=== PATIENT | female | born 1950 | race African-American/Black ===

== ENCOUNTER 2024-08-17 03:39 | Inpatient (IN) | payer OTHER, MEDICAID ==
[~2024-08-17] VITALS: Ht 170.2 cm; Wt 83.5 kg
--- NOTE | 2024-08-17 04:52 | ED.PDOC ---
History of Present Illness HPI Comments 74 y/o F, with a Hx of CVA w/right-sided and speech deficits and obesity, is BIBA for c/o nausea, vomiting, and diarrhea, today. Per EMS report, family called on patient's behalf for sudden and unprovoked onset of symptoms, this morning. Patient was noted to have epigastric pain to palpation, a blood pressur e of 170/7p, and a SpO2 of 88%RA on scene and was given 4mg Zofran and given DuoNeb breathing Tx and 2LPM O2 placement en route. Patient has no reported chest pain, hematemesis, fever, chills, or other associated symptoms or modifiers at this time. Chief Complaint: Nausea/Vomiting Time Seen by MD: 04:10 Reviewed Notes: Nurses Notes, Booth Cashier Notes, Medications, Allergies Allergies: Coded Allergies: Penicillins (Verified Allergy, Unknown, 08/17/24) Information Source: Emergency Med Personnel Mode of Arrival: EMS Severity: Moderate Timing: Hours Duration: Since onset Prehospital treatment: 12 Lead EKG, Breathing Tx (duoneb), Material Handler Floorperson, Oxygen, Other (Zofran ) Past Medical History PAST MEDICAL HISTORY: CVA (w/right-sided and speech deficits ) Past Medical History (Other): obesity Surgical History: Denies all surgeries STOCK TRACER History: Denies all STOCK TRACER Hx Family History Family History: Unknown Social History Smoker: Non-Smoker Alcohol: Denies ETOH Use Drugs: Denies Drug Use Lives In: Home Gastrointestinal: reports: diarrhea, nausea, vomiting All Other Systems: Reviewed and Negative (negative unless otherwise stated above or in HPI) Physical Exam General Appearance: No Apparent Distress, Obese HEENT: Normal ENT Inspection, Pharynx Normal, TMs Normal Neck: Full Range of Motion, Non-Tender, Normal, Normal Inspection Respiratory: Chest Non-Tender, Lungs Clear, No Accessory Muscle Use, No Respiratory Distress, Normal Breath Sounds Cardiovascular: No Edema, No JVD, No Murmur, No Gallop, Normal Peripheral Pulses, Regular Rate/Rhythm Breast Exam: Deferred Gastrointestinal: No Organomegaly, Non Tender, No Pulsatile Mass, Normal Bowel Sounds, Soft Genitalia: Deferred Pelvic: Deferred Rectal: Deferred Extremities: No calf tenderness, Normal capillary refill, Normal inspection, Normal range of motion, Non-tender, No pedal edema Musculoskeletal : Apperance: Normal Neurologic: Alert, Normal Affect, Normal Mood, Other (right-side paralysis ) Cerebellar Function: Normal Reflexes: Normal Skin: Dry, Normal Color, Warm, Wounds (right buttocks, skin breakdown 8x7cm in dimension, stage I) Lymphatic: No Adenopathy Was a procedure done? Was a procedure done?: No Differential Dx Considerations may include: gastritis, gastroenteritis, viral syndrome, URI, PNA X-Ray, Labs, Meds, VS Vital Signs Date Time Temp Pulse Resp B/P (MAP) Pulse Ox O2 Delivery O2 Flow Rate FiO2 08/17/24 04:42 98.0 74 26 151/64 (93) 97 98.0 08/17/24 04:33 Nasal Cannula* 2 28 08/17/24 03:42 67 08/17/24 03:42 97.6 65 26 170/70 (103) [address] [place] [id number] Ph: [phone] DIAGNOSTIC IMAGING Diagnostic Imaging Report : [id number] Signed PATIENT: RADHA BONILLA ACCT: [id number] UNIT: [id number] : 1950 LOC: ER ROOM / BED: / AGE / SEX: 74 / F ADM STATUS: REG ER SERVICE [id number] ORDERING PHYSICIAN: SANFORD ISABEL MD PROCEDURE(s): ABPL - CT AB PEL WO CON-NO ORAL OR IV REASON: v/v/d ORDER NUMBER(s): [id number], ACCESSION NUMBER(s): [id number] Exam: CT CT AB PEL WO CON-NO ORAL OR IV History: v/v/d Comparison Study: None available at time of dictation. Technique: Multidetector spiral CT of the abdomen and pelvis was performed from lung bases to pubic symphysis. Imaging was performed without intravenous contrast. Coronal and sagittal multiplanar reformats were obtained from the axial data set by the technologist. Radiation Dose : 1. Abdomen/Pelvis: CTDIvol 23.3 mGy, DLP 1203.4 mGy*cm. Findings: Evaluation of vasculature and solid organs is limited due to lack of intravenous contrast use. Lung Bases: Lung bases are clear. Visualized portions of the heart and pericardium are unremarkable. Liver: The liver is normal in size. No focal lesions. Gallbladder and Biliary Tree: The gallbladder has gallstones. No intrahepatic or extrahepatic biliary ductal dilatation. Spleen: Unremarkable Pancreas: The pancreas is grossly unremarkable. Adrenal Glands: Unremarkable Kidneys: Punctate bilateral nonobstructive intrarenal calculi. GI tract: The stomach is grossly normal in appearance. No evidence of small bowel wall thickening or abnormal dilatation to suggest bowel obstruction. Sigmoid diverticulosis without acute diverticulitis. There is a rectal tube in place. The appendix is visualized and is normal. Peritoneum/mesentery/retroperitoneum. No evidence of free intraperitoneal air. No ascites. No evidence of suspicious lymphadenopathy. Abdominal Wall: Unremarkable. Vasculature: The visualized abdominal aorta is normal in size and caliber. Evaluation of abdominal and pelvic vessels is limited due to lack of intravenous contrast. There are atherosclerotic calcifications in the aorta. Urinary Bladder: Grossly unremarkable for degree of distention. Pelvic Organs: Unremarkable Musculoskeletal: No aggressive focal bony lesions, acute fractures or disloca tion. Soft tissues: There is soft tissue swelling in the right flank. IMPRESSION: 1. No acute abdominal or pelvic findings. 2. Sigmoid diverticulosis without acute diverticulitis. 3. Cholelithiasis. 4. Nonobstructive nephrolithiasis. 5. Soft tissue swelling in the right flank. ATED BY: HEENA AGARWAL MD DICTATED DATE/TIME: 08/17/24546 SIGNED BY: HEENA AGARWAL MD SIGNED DATE/TIME: 08/17/24546 CC: Labs are pending The patient will be admitted to the hospitalist for further evaluation and care Time of 1ST Reevaluation: 04:40 Reevaluation 1ST: Unchanged Patient Education/Counseling: Diagnosis, Treatment Family Education/Counseling: No Family Present Departure 1 Departure Time of Disposition: 06:06 Impression: Primary Impression: Cholelithiasis Qualified Codes: K80.20 - Calculus of gallbladder without cholecystitis without obstruction Additional Impressions: Nephrolithiasis Diverticulosis Disposition: ADMITTED INPATIENT Admit to: [facility] [place] Condition: Guarded Critical Care Note Critical Care Time?: Yes (35 min-critical care time only) Stability Stability form required: No Heart Score Heart Score: Heart Score Response (Comments) Value History N/A 0 EKG N/A 0 Age N/A 0 Risk Factors N/A 0 Troponin N/A 0 Total 0 I personally scribed for SANFORD ISABEL MD ([email or web address]) on 08/17/24 at 04:52. Electronically submitted by Chauncey Hwang ([email or web address]). SANFORD ISABEL MD Aug 17, 2024 04:52
--- NOTE | 2024-08-17 05:50 | DVH ---
Exam: CT CT AB PEL WO CON-NO ORAL OR IV History: v/v/d Comparison Study: None available at time of dictation. Technique: Multidetector spiral CT of the abdomen and pelvis was performed from lung bases to pubic s ymphysis. Imaging was performed without intravenous contrast. Coronal and sagittal multiplanar refor mats were obtained from the axial data set by the technologist. Radiation Dose : 1. Abdomen/Pelvis: CTDIvol 23.3 mGy, DLP 1203.4 mGy*cm. Findings: Evaluation of vasculature and solid organs is limited due to lack of intravenous contrast use. Lung Bases: Lung bases are clear. Visualized portions of the heart and pericardium are unremarkable. Liver: The liver is normal in size. No focal lesions. Gallbladder and Biliary Tree: The gallbladder has gallstones. No intrahepatic or extrahepatic bilia ry ductal dilatation. Spleen: Unremarkable Pancreas: The pancreas is grossly unremarkable. Adrenal Glands: Unremarkable Kidneys: Punctate bilateral nonobstructive intrarenal calculi. GI tract: The stomach is grossly normal in appearance. No evidence of small bowel wall thickening or abnormal dilatation to suggest bowel obstruction. Sigmoid diverticulosis without acute diverticuliti s. There is a rectal tube in place. The appendix is visualized and is normal. Peritoneum/mesentery/retroperitoneum. No evidence of free intraperitoneal air. No ascites. No evidenc e of suspicious lymphadenopathy. Abdominal Wall: Unremarkable. Vasculature: The visualized abdominal aorta is normal in size and caliber. Evaluation of abdominal a nd pelvic vessels is limited due to lack of intravenous contrast. There are atherosclerotic calcifica tions in the aorta. Urinary Bladder: Grossly unremarkable for degree of distention. Pelvic Organs: Unremarkable Musculoskeletal: No aggressive focal bony lesions, acute fractures or dislocation. Soft tissues: There is soft tissue swelling in the right flank. IMPRESSION: 1. No acute abdominal or pelvic findings. 2. Sigmoid diverticulosis without acute diverticulitis. 3. Cholelithiasis. 4. Nonobstructive nephrolithiasis. 5. Soft tissue swelling in the right flank.
--- NOTE | 2024-08-17 06:37 | ECG ---
[facility] Test Date: 2024-08-17 Test Time: 03:42:03 Pat Name: RADHA BONILLA Department: ED Room: [address] [place] [address] Gender: F Inspector Ball Points: SHEKHAR : 1950 Requested By: EMERGENCY EMERGENCY Order Number: [id number] Reading MD: Maynor Rodriguez Measurements Intervals Mcdougal Rate: 67 P: 87 WV: 149 QRS: 11 QRSD: 106 T: 195 QT: 429 QTc: 453 Interpretive Statements Sinus rhythm LVH with secondary repolarization abnormality Electronically Signed On 08-17-2024 18:28:48 PST by Maynor Rodriguez Please click the below link to view image of tracing.
[2024-08-17 07:15] LABS: Basophils # (auto) 0 10 ^3/uL (0-0.2); Basophils % (auto) 0.3 % (0.0-2.0); Eosinophils # (auto) 0 10 ^3/uL (0-0.8); Eosinophils % (auto) 0.1 % (0.0-7.0); Hematocrit 41.2 % (36.0-46.0); Hemoglobin 13.8 g/dL (12.2-16.2); Lymphocytes # (auto) 0.8 10 ^3/uL (0.4-5.4); Lymphocytes % (auto) 7.6 % (10.0-50.0); Mean Corpuscular Hemoglobin 28.7 pg (28.0-32.0); Mean Corpuscular Hgb Conc. 33.5 g/dL (32.0-36.0); Mean Corpuscular Volume 85.8 fL (80.0-100.0); Monocytes # (auto) 0.4 10 ^3/uL (0-1.3); Monocytes % (auto) 3.9 % (0.0-12.0); Neutrophils # (auto) 9.3 10 ^3/uL (1.6-8.6); Neutrophils % (auto) 88.1 % (37.0-80.0); Platelet Count (auto) 296 10^3/uL (140-450); Red Blood Cells 4.81 10^6/uL (4.0-5.20); Red Cell Distribution Width 18.2 % (11.8-14.3); White Blood Cell 10.5 10^3/uL (4.4-10.8)
[2024-08-17 07:31] LABS: INR 1.59 (0.9-1.15); Prothrombin Time 16.3 sec (9.3-11.8)
[2024-08-17 07:32] LABS: Alanine Aminotransferase 21 U/L (7-40); Albumin 3.9 g/dL (3.2-4.8); Anion Gap 9 (5-15); Aspartate Aminotransferase 25 U/L (13-40); Bilirubin, Total 0.5 mg/dL (0.2-1.0); Blood Urea Nitrogen 19 mg/dL (9-23); Calcium 9.9 mg/dL (8.7-10.4); Carbon Dioxide 25 mmol/L (20-31); Chloride 107 mmol/L (98-107); Magnesium 1.9 mg/dL (1.6-2.6); Potassium 4.1 mmol/L (3.5-5.1); Sodium 141 mmol/L (136-145); Total Protein 7.9 g/dL (5.7-8.2)
[2024-08-17 07:33] LABS: Alkaline Phosphatase 128 U/L (46-116); Glucose 154 mg/dL (74-106)
[2024-08-17 08:25] VITALS: PULSE 75; RESP 27; O2SAT 98
--- NOTE | 2024-08-17 08:44 | DVH ---
EXAM: CT HEAD WITHOUT CONTRAST INDICATION: bleed TECHNIQUE: CT of the head without intravenous contrast. Radiation Dose Information: CT Dose: CTDI volume is 25 mGy. Dose-length product is 250 mGy*cm The dose indicators for CT are the volume Computed Tomography (CT) Dose Index (CTDIvol) and the Dose Length Product (DLP), and are measured in units of mGy and mGy-cm, respectively. These indicators are not patient dose, but values generated from the CT scanner acquisition factors. The report includes radiation exposure data for exposures received during this examination. COMPARISON: None FINDINGS: There is no evidence of acute intracranial hemorrhage, extra-axial collection, mass effect, midline s hift, herniation or hydrocephalus. Encephalomalacia left MCA territory The ventricles, sulci and cisterns are age appropriate. The swann-white differentiation is intact. Patchy periventricular and subcortical white matter hypoattenuation is nonspecific but may be related to small vessel ischemic disease. The visualized paranasal sinuses and mastoid air cells are clear. The surrounding soft tissues and osseous structures are unremarkable. IMPRESSION: No acute intracranial abnormality.
[2024-08-17] MEDS: SODIUM CHLORIDE 0.9% 1,000 ML IV ONE (09:10)
[2024-08-17] MEDS: ENOXAPARIN SOD 120 MG/0.8 ML SYRINGE SC ONE (09:15)
[2024-08-17] MEDS: cefTRIAXone 1GM/50ML D5W 50 ML IV ONE (09:18)
[2024-08-17] MEDS ORDERED: MORPHINE SULFATE 4 MG/ML SYR/VIAL IV PRN (09:45)
[2024-08-17] MEDS ORDERED: ONDANSETRON HCL 4 MG/2 ML VIAL IV PRN (09:45)
[2024-08-17] MEDS ORDERED: ALBUTEROL SULF 2.5 MG/0.5ML(0.5%) NEB SOLN NEB PRN ×2 (09:45→10:15)
[2024-08-17] MEDS ORDERED: IPRATROPIUM BROM 0.5 MG/2.5ML INH SOL NEB PRN ×2 (09:45→10:15)
[2024-08-17] MEDS ORDERED: NITROGLYCERIN 0.4 MG SL TAB SL PRN ×2 (09:45)
[2024-08-17] MEDS ORDERED: ROSU20TA56 PO (09:46)
[2024-08-17] MEDS ORDERED: LOSA-534 PO (09:46)
[2024-08-17] MEDS ORDERED: HYDR25TA4 PO (09:46)
[2024-08-17] MEDS ORDERED: HYDR100T10 PO (09:46)
[2024-08-17] MEDS ORDERED: AMLO1TAB23 PO (09:46)
[2024-08-17] MEDS ORDERED: MET50T PO (09:46)
[2024-08-17] MEDS ORDERED: WARF4TAB70 PO (09:49)
[2024-08-17] MEDS: ENOXAPARIN SOD 100 MG/1 ML SYRINGE SC SCH (10:00)
--- NOTE | 2024-08-17 10:23 | DVHHP2 ---
History of Present Illness Reason for Visit: Nausea, vomiting, diarrhea abdominal pain, and shortness of breath History of Present Illness Twila Chavira is a 74-year-old female with past medical history of hypertension, hyperlipidemia, bronchitis, CVA with right-sided deficits over 8 years ago who is bed ridden, cardiac stent over 10 years ago, and hysterectomy who presents to the ED for nausea, vomiting, diarrhea, abdominal pain, and shortness of breath times 1 day. Per daughter who is at bedside she states that the diarrhea just happened yesterday and she reports that she believes it is due to spoiled food. Patient daughter also reports that patient is bed ridden due to a CVA that occurred over 8 years ago and the patient has right-sided deficits. Patient can still move her extremities but limited. Right lower extremity appears to be larger than the left side but patient has no complaints of pain. Patient also denies chest pain, fever, chills, any recent trauma or injury, recent sick contacts, lightheadedness, dizziness, and headaches. 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 Past Medical History Cardiac stent placed over 10 years ago per daughter at [place] Past Surgical History: Hysterectomy Family History: None Smoke: No ALCOHOL: none Drugs: None Lives: with Family Domestic Violence: Neg Review of Systems Constitutional: Yes: Other (Right-sided deficits from CVA); No: Fever, Chills, Sweats, Weakness, Malaise Eyes: No: Pain, Vision change, Conjunctivae inflammation, Eyelid inflammation, Other, Redness ENT: No: Ear pain, Ear discharge, Nose pain, Nose discharge, Nose congestion, Mouth pain, Mouth swelling, Throat pain, Throat swelling, Other Respiratory: Shortness of breath; No: Cough, Dry, SOB with excertion, Wheezing, Hemoptysis, Pleuritic Pain, Sputum, Wheezing, Other Cardiovascular: No: Chest Pain, Palpitations, Orthopnea, Paroxysmal Noc. Dyspnea, Edema, Lt Headedness, Other Gastrointestinal: Nausea, Vomiting, Abdominal Pain, Diarrhea; No: Constipation, Melena, Hematochezia, Other Genitourinary: No Dysuria, No Frequency, No Incontinence, No Hematuria, No Retention, No Other Musculoskeletal: No: other, neck pain, shoulder pain, arm pain, back pain, hand pain, leg pain, foot pain Skin: No: Rash, Lesions, Jaundice, Bruising, Other Neurological: No: Weakness, Numbness, Incoordination, Change in speech, Confusion, Seizures, Other Allergies: Coded Allergies: Penicillins (Verified Allergy, Unknown, 08/17/24) Medications Current Medications Medications Dose Ordered Sig/Justin Route Start Time Stop Time Status Last Admin Dose Admin Aspirin 81 mg DAILY PO 08/17/24 10:00 UNV Morphine Sulfate 2 mg Q30MP PRN IV 08/17/24 09:45 UNV Acetaminophen 650 mg Q6HP PRN PO 08/17/24 09:45 UNV Nitroglycerin 0.4 mg Q5MINP PRN SL 08/17/24 09:45 UNV Ondansetron HCl 4 mg Q4HP PRN IV 08/17/24 09:45 UNV Nitroglycerin 0.4 mg Q5MINP PRN SL 08/17/24 09:45 UNV Morphine Sulfate 2 mg Q30M PRN IV 08/17/24 09:45 UNV Enoxaparin Sodium 110 mg Q12HR SC 08/17/24 10:00 UNV Albuterol 2.5 mg Q4HPRN PRN NEB 08/17/24 09:45 UNV Ipratropium [place] 0.5 mg Q4HPRN PRN NEB 08/17/24 09:45 UNV Exam Vital Signs Vital Signs Date Time Temp Pulse Resp B/P (MAP) Pulse Ox O2 Delivery O2 Flow Rate FiO2 08/17/24 08:25 75 27 98 Nasal Cannula* 2 28 08/17/24 08:03 97.3 134/30 (64) 97.3 General Appearance: Alert, Oriented X3, Cooperative, No acute distress HEENT: Atraumatic, PERRLA, EOMI, Mucous membr. moist/pink Respiratory: Normal air movement Cardiovascular: Regular rate, Normal S1, Normal S2, No murmurs Abdominal: Soft, No hepatospenomegaly, No masses Extremities: No clubbing, No cyanosis Skin: No significant lesion Neuro: Sensation intact Psych/Mental Status: Mental status NL, Mood NL Labs/Xrays Labs Test 08/17/24 09:35 08/17/24 06:15 Range/Units White Blood Count 10.5 4.4-10.8 10^3/uL Red Blood Count 4.81 4.0-5.20 10^6/uL Hemoglobin 13.8 12.2-16.2 g/dL Hematocrit 41.2 36.0-46.0 % Mean Corpuscular Volume 85.8 80.0-100.0 fL Mean Corpuscular Hemoglobin 28.7 28.0-32.0 pg Mean Corpuscular Hemoglobin Concent 33.5 32.0-36.0 g/dL Red Cell Distribution Width 18.2 H 11.8-14.3 % Platelet Count 296 140-450 10^3/uL Mean Platelet Volume 9.5 6.9-10.8 fL Neutrophils (%) (Auto) 88.1 H 37.0-80.0 % Lymphocytes (%) (Auto) 7.6 L 10.0-50.0 % Monocytes (%) (Auto) 3.9 0.0-12.0 % Eosinophils (%) (Auto) 0.1 0.0-7.0 % Basophils (%) (Auto) 0.3 0.0-2.0 % Neutrophils # (Auto) 9.3 H 1.6-8.6 10 ^3/uL Lymphocytes # (Auto) 0.8 0.4-5.4 10 ^3/uL Monocytes # (Auto) 0.4 0-1.3 10 ^3/uL Eosinophils # (Auto) 0 0-0.8 10 ^3/uL Basophils # (Auto) 0 0-0.2 10 ^3/uL Nucleated Red Blood Cells 0.0 % Prothrombin Time 16.3 H 9.3-11.8 sec Prothrombin Time INR 1.59 H 0.9-1.15 Activated Partial Thromboplast Time 33.0 24.5-34.5 SEC Sodium Level 141 136-145 mmol/L Potassium Level 4.1 3.5-5.1 mmol/L Chloride Level 107 98-107 mmol/L Carbon Dioxide Level 25 20-31 mmol/L Anion Gap 9 5-15 Blood Urea Nitrogen 19 9-23 mg/dL Creatinine 1.19 H 0.550-1.02 mg/dL Glomerular Filtration Rate Calc 48 >90 mL/min BUN/Creatinine Ratio 16.0 10.0-20.0 Serum Glucose 154 H 74-106 mg/dL Calcium Level 9.9 8.7-10.4 mg/dL Magnesium Level 1.9 1.6-2.6 mg/dL Total Bilirubin 0.5 0.2-1.0 mg/dL Aspartate Amino Transferase (AST) 25 13-40 U/L Alanine Aminotransferase (ALT) 21 7-40 U/L Alkaline Phosphatase 128 H 46-116 U/L B-Type Natriuretic Peptide 300.32 0-100 pg/mL Total Protein 7.9 5.7-8.2 g/dL Albumin 3.9 3.2-4.8 g/dL EXAM: CT HEAD WITHOUT CONTRAST INDICATION: bleed TECHNIQUE: CT of the head without intravenous contrast. Radiation Dose Information: CT Dose: CTDI volume is 25 mGy. Dose-length product is 250 mGy*cm The dose indicators for CT are the volume Computed Tomography (CT) Dose Index (CTDIvol) and the Dose Length Product (DLP), and are measured in units of mGy and mGy-cm, respectively. These indicators are not patient dose, but values generated from the CT scanner acquisition factors. The report includes radiation exposure data for exposures received during this examination. COMPARISON: None FINDINGS: There is no evidence of acute intracranial hemorrhage, extra-axial collection, mass effect, midline shift, herniation or hydrocephalus. Encephalomalacia left MCA territory The ventricles, sulci and cisterns are age appropriate. The swann-white differentiation is intact. Patchy periventricular and subcortical white matter hypoattenuation is nonspecific but may be related to small vessel ischemic disease. The visualized paranasal sinuses and mastoid air cells are clear. The surrounding soft tissues and osseous structures are unremarkable. IMPRESSION: No acute intracranial abnormality. Exam: CT CT AB PEL WO CON-NO ORAL OR IV History: v/v/d Comparison Study: None available at time of dictation. Technique: Multidetector spiral CT of the abdomen and pelvis was performed from lung bases to pubic symphysis. Imaging was performed without intravenous cont rast. Coronal and sagittal multiplanar reformats were obtained from the axial data set by the technologist. Radiation Dose : 1. Abdomen/Pelvis: CTDIvol 23.3 mGy, DLP 1203.4 mGy*cm. Findings: Evaluation of vasculature and solid organs is limited due to lack of intravenous contrast use. Lung Bases: Lung bases are clear. Visualized portions of the heart and pericardium are unremarkable. Liver: The liver is normal in size. No focal lesions. Gallbladder and Biliary Tree: The gallbladder has gallstones. No intrahepatic or extrahepatic biliary ductal dilatation. Spleen: Unremarkable Pancreas: The pancreas is grossly unremarkable. Adrenal Glands: Unremarkable Kidneys: Punctate bilateral nonobstructive intrarenal calculi. GI tract: The stomach is grossly normal in appearance. No evidence of small bowel wall thickening or abnormal dilatation to suggest bowel obstruction. Sigmoid diverticulosis without acute diverticulitis. There is a rectal tube in place. The appendix is visualized and is normal. Peritoneum/mesentery/retroperitoneum. No evidence of free intraperitoneal air. No ascites. No evidence of suspicious lymphadenopathy. Abdominal Wall: Unremarkable. Vasculature: The visualized abdominal aorta is normal in size and caliber. Ev aluation of abdominal and pelvic vessels is limited due to lack of intravenous contrast. There are atherosclerotic calcifications in the aorta. Urinary Bladder: Grossly unremarkable for degree of distention. Pelvic Organs: Unremarkable Musculoskeletal: No aggressive focal bony lesions, acute fractures or dislocation. Soft tissues: There is soft tissue swelling in the right flank. IMPRESSION: 1. No acute abdominal or pelvic findings. 2. Sigmoid diverticulosis without acute diverticulitis. 3. Cholelithiasis. 4. Nonobstructive nephrolithiasis. 5. Soft tissue swelling in the right flank. Assessment/Plan Assessment/Plan Assessment/Plan: Intractable abdominal pain likely viral Cardiac stent greater than 10 years ago IV antibiotics-ceftriaxone and Flagyl NS Antiemetics CT abdomen and pelvis noted CT head noted Stool bacterial culture Flexes Cl Elevated troponin Aspirin Statin EKG UA PT/PTT BNP Olivera catheter Echo Right lower extremity ultrasound rule out DVT Pain management Labs A.m. labs EKG a.m. Cards consult History of CVA with right-sided deficits Monitor Follow up with PCP outpatient Chronic bronchitis Respiratory treatments Chronic hypertension Chronic hyperlipidemia Continue home meds f/u with pcp outpatient Sigmoid diverticulosis without acute diverticulitis. Cholelithiasis. Nonobstructive nephrolithiasis. Soft tissue swelling in the right flank. 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 OPERATOR Procedure Category Date Status Time Admit ADMIT 08/17/24 Transmitted 09:38 Code Status CODE 08/17/24 Transmitted 09:38 Vital Signs YUN 08/17/24 In Process 09:38 Meat Products Demonstrator YUN 08/17/24 In Process 09:38 Cardiac DIET 08/17/24 Transmitted Diet-2gna,Lofat,Lochol Lunch Aspirin Tablet PHA 08/17/24 Logged 10:00 Morphine Sulfate PHA 08/17/24 Logged Injection 09:45 Acetaminophen Tablet PHA 08/17/24 Logged (Tylenol Tablet) 09:45 Complete Blood Count LAB 08/18/24 Verified 04:00 Comprehensive LAB 08/18/24 Verified Metabolic Panel 04:00 Echo 2d Mode Cardiac US 08/17/24 Logged DOP 09:38 Nitroglycerin PHA 08/17/24 Logged Sublingual (Ntrostat 09:45 Ondansetron Hcl PHA 08/17/24 Logged (Zofran) 09:45 Electrocardigram EKG 08/18/24 Logged 04:00 Cardiac YUN 08/17/24 In Process Rehabilitation - Outpa Nitroglycerin PHA 08/17/24 Logged Sublingual (Ntrostat 09:45 Morphine Sulfate PHA 08/17/24 Logged Injection 09:45 Stat Ekg For Chest YUN 08/17/24 In Process Pain 09:38 Notify Of Changes YUN 08/17/24 In Process From Base 09:38 Shiftman For YUN 08/17/24 In Process 24 Hours 09:38 Emergency Dysrhythmia YUN 08/17/24 In Process Protocol 09:38 Rhythm Strips Once [facility] 08/17/24 In Process Every Shift 09:38 Oxygen By Nasal RT 08/17/24 Transmitted Cannula 09:38 Rt Lower Dvt US 08/17/24 Logged 09:38 * Cardiology Consult CONS 08/17/24 Transmitted 09:38 Enoxaparin Sodium PHA 08/17/24 Logged (Lovenox) 10:00 Albuterol Medneb PHA 08/17/24 Logged (Ventolin Medneb) 09:45 Ipratropium Medneb PHA 08/17/24 Logged (Atrovent Medneb) 09:45 Metronidazole Ivpb PHA 08/17/24 Transmitted Flagyl 14:00 Ceftriaxone Ivpb PHA 08/18/24 Transmitted Rocephin 09:00 Date of Service: Aug 17, 2024 Billing Provider: CORBY RAMIREZ Common Visit Codes: [id number] INP/OBS CARE (HIGH) CORBY RAMIREZ Aug 17, 2024 10:23
[2024-08-17] MEDS: HYDROmorphone HCL 2 MG/ML VL/or syr IV ONE (10:31)
[2024-08-17] MEDS: ONDANSETRON HCL 4 MG/2 ML VIAL IV ONE (10:32)
[2024-08-17 10:45] VITALS: BP 144/77; PULSE 62; RESP 20; O2SAT 98
--- NOTE | 2024-08-17 11:00 | DVH ---
RIGHT LOWER EXTREMITY VENOUS DOPPLER CLINICAL HISTORY: Right leg swelling TECHNIQUE: Right lower extremity venous doppler study was performed. COMPARISON: None FINDINGS: The right common femoral, superficial femoral, popliteal, posterior tibial veins appear patent with normal augmentation, phasicity, compressibility and color-flow. . IMPRESSION: 1. No sonographic evidence of DVT in the right leg. HS:Y
[2024-08-17] MEDS: ASPirin 81 mg TAB PO SCH (12:14)
[2024-08-17 12:24] LABS: Urine Bacteria FEW /hpf (None Seen); Urine Blood Negative /uL (Negative); Urine Budding Yeast OCCASIONAL /hpf (None Seen); Urine Clarity Turbid (Clear); Urine Color Yellow (Yellow); Urine Mucus FEW (None Seen); Urine Protein, UAD 1+ (Negative); Urine Squamous Epithelial Cell MOD /hpf (<5); Urine Urobilinogen Normal (Negative); Urine WBC 79 /hpf (0 - 5)
--- NOTE | 2024-08-17 12:24 | DVHPN2 ---
Consult Progress Note Objective vital signs Vital Sign Date Time Temp Pulse Resp B/P (MAP) Pulse Ox O2 Delivery O2 Flow Rate FiO2 08/17/24 11:30 69 08/17/24 11:00 16 119/47 08/17/24 10:45 98 2.0 08/17/24 08:25 Nasal Cannula* 28 08/17/24 08:03 97.3 97.3 medications Current Medications Medications Dose Ordered Sig/Justin Route Start Time Stop Time Status Last Admin Dose Admin Aspirin 81 mg DAILY PO 08/17/24 10:00 08/17/24 12:14 81 MG Morphine Sulfate 2 mg Q30MP PRN IV 08/17/24 09:45 Acetaminophen 650 mg Q6HP PRN PO 08/17/24 09:45 Nitroglycerin 0.4 mg Q5MINP PRN SL 08/17/24 09:45 Ondansetron HCl 4 mg Q4HP PRN IV 08/17/24 09:45 Nitroglycerin 0.4 mg Q5MINP PRN SL 08/17/24 09:45 Morphine Sulfate 2 mg Q30M PRN IV 08/17/24 09:45 Enoxaparin Sodium 110 mg Q12HR SC 08/17/24 10:00 Albuterol 2.5 mg Q4HPRN PRN NEB 08/17/24 09:45 Ipratropium [place] 0.5 mg Q4HPRN PRN NEB 08/17/24 09:45 Metronidazole 100 ml @ 100 mls/hr Q8HR IV 08/17/24 14:00 Ceftriaxone Sodium 50 ml @ 100 mls/hr DAILY@09 IV 08/18/24 09:00 Pantoprazole Sodium 40 mg DAILY IV 08/18/24 10:00 Albuterol 2.5 mg Q4HPRN PRN NEB 08/17/24 10:15 Ipratropium [place] 0.5 mg Q4HPRN PRN NEB 08/17/24 10:15 laboratory and microbiology Laboratory Tests 08/17/24 06:15 Test 08/17/24 06:15 Range/Units Serum Glucose 154 H 74-106 mg/dL SHERYL MEIER Aug 17, 2024 12:24
--- NOTE | 2024-08-17 13:11 | DVHINCON2 ---
Date Seen: Aug 17, 2024 Referring Physician MALCOLM Alvarez Reason for Consultation Cardiac stent and elevated troponin History of Present Illness This is a 74-year-old female patient who presents to the emergency room with chief complaint of nausea, vomiting, diarrhea, abdominal pain, and shortness of breath. At the time of assessment, there is no family at bedside. Patient only able to answer simple questions and able to nod yes or no. Past medical history obtained from patient's chart and bedside RN. Cardiology is now being consulted for elevated troponin level and history of cardiac stent. Initial twelve lead electrocardiogram reveals normal sinus rhythm with ST segment depression to inferolateral and anterior leads. Initial troponin level of 537ng/L with down trend thereafter. Initial BNP level of 300.32pg/mL. Called patient's daughter "Shady" for past medical history. 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 The patient's daughter states that the patient does not follow up Cardiology in the outpatient setting. Of note, the patient is taking Coumadin therapy at home. Asked patient and her daughter as to why the patient was on Coumadin therapy, both the patient and daughter are unsure. Patient denies any history of atrial fibrillation or mechanical heart valve. Past Medical History Past medical history reviewed. No other significant than mentioned above. Past Surgical History Hysterectomy Family History Family history reviewed. Social History Denies the use of tobacco, alcohol or illicit drugs. Allergies: Coded Allergies: Penicillins (Verified Allergy, Unknown, 08/17/24) Home Meds Reported Medications Warfarin Sodium (Warfarin Sodium) 1 Mg Tab, TAB PO 08/17/24 Rosuvastatin Calcium (Rosuvastatin Calcium) 20 Mg Tab, 1 TAB PO 08/17/24 Hydrochlorothiazide (Hydrochlorothiazide) 25 Mg Tab, 1 TAB PO DAILY 08/17/24 Hydralazine Hcl (Hydralazine Hcl) 100 Mg Tab, 1 TAB PO TID 08/17/24 Losartan Potassium (Losartan Potassium) 50 Mg Tab, 1 TAB PO BID 08/17/24 Amlodipine Besylate (Amlodipine Besylate) 10 Mg Tab, 1 TAB PO DAILY 08/17/24 Metoprolol Tartrate (LOPRESSOR TABLET) 50 Mg Tb, 1 TAB PO BID 08/17/24 Home Meds Home medications reviewed. Current Medications Current Medications Medications (Trade) Dose Ordered Sig/Justin Route PRN Reason Start Time Stop Time Status Last Admin Aspirin 81 mg DAILY PO 08/17/24 10:00 08/17/24 12:14 Morphine Sulfate 2 mg Q30MP PRN IV FOR CHEST PAIN 08/17/24 09:45 Acetaminophen (Tylenol Tablet) 650 mg Q6HP PRN PO MILD PAIN (1-3 PAIN SCALE) 08/17/24 09:45 Nitroglycerin (Ntrostat Sublingual) 0.4 mg Q5MINP PRN SL FOR CHEST PAIN 08/17/24 09:45 Ondansetron HCl (Zofran) 4 mg Q4HP PRN IV NAUSEA / VOMITING 08/17/24 09:45 Nitroglycerin (Ntrostat Sublingual) 0.4 mg Q5MINP PRN SL FOR CHEST PAIN 08/17/24 09:45 Morphine Sulfate 2 mg Q30M PRN IV FOR CHEST PAIN 08/17/24 09:45 Enoxaparin Sodium (Lovenox) 110 mg Q12HR SC 08/17/24 10:00 Albuterol (Ventolin Medneb) 2.5 mg Q4HPRN PRN NEB SHORTNESS OF BREATH 08/17/24 09:45 Ipratropium [place] (Atrovent Medneb) 0.5 mg Q4HPRN PRN NEB SHORTNESS OF BREATH 08/17/24 09:45 Metronidazole 100 ml @ 100 mls/hr Q8HR IV 08/17/24 14:00 Ceftriaxone Sodium 50 ml @ 100 mls/hr DAILY@09 IV 08/18/24 09:00 Pantoprazole Sodium (Protonix) 40 mg DAILY IV 08/18/24 10:00 Albuterol (Ventolin Medneb) 2.5 mg Q4HPRN PRN NEB SHORTNESS OF BREATH 08/17/24 10:15 Ipratropium [place] (Atrovent Medneb) 0.5 mg Q4HPRN PRN NEB SHORTNESS OF BREATH 08/17/24 10:15 Review of Systems Constitutional: No symptom reported Ears, Nose, & Throat: No symptom reported Eyes: No symptom reported Neurological: No symptoms reported Pulmonary/Respiratory: Shortness of breath Cardiovascular: No symptom reported Gastrointestinal: Nausea, vomiting, diarrhea, abdominal pain Genitourinary: No symptom reported Musculoskeletal: No symptom reported Skin: No symptom reported Psychiatric: No symptom reported Endocrine: No symptom reported Hematologic/Lymphatic: No symptom reported Vital Signs Vital Signs Date Time Temp Pulse Resp B/P (MAP) Pulse Ox O2 Delivery O2 Flow Rate FiO2 08/17/24 12:00 64 109/43 (65) 95 08/17/24 11:00 16 08/17/24 10:45 2.0 08/17/24 08:25 Nasal Cannula* 28 08/17/24 08:03 97.3 97.3 Physical Exam General Appearance: Cooperative. Morbidly obese Pulmonary/Respiratory: Clear, bilateral breaths sounds. Cardiovascular/Chest: Regular rate and rhythm. Peripheral Pulses: 2+ Radial (R). 2+ Radial (L). 2+ Pedal (R). 2+ Pedal (L) Abdominal Exam: Normal bowel sounds. Ankle Exam: Negative ankle edema Lower extremities: Negative lower extremity edema Neuro/Mental Status: A/OX4, coherent. Only able to answer simple questions with yes and no. Right-sided deficit Thoughts/Psych: Normal thought pattern. Appropriate mood and affect. Good judgment and insight. Appearance: No acute distress. Skin Exam: Normal inspection. Normal color. Warm and dry. Labs/Diagnostic Data Labs Test 08/17/24 11:37 08/17/24 11:30 08/17/24 06:15 Range/Units Troponin I High Sensitivity 477 *H </=34 ng/L Urine Color Yellow Yellow Urine Clarity Turbid H Clear Urine pH 5.0 5.0-9.0 Urine Specific [place] 1.020 1.001-1.035 Urine Protein 1+ H Negative Urine Ketones Negative Negative Urine Blood Negative Negative /uL Urine Nitrite Negative Negative Urine Bilirubin Negative Negative Urine Urobilinogen Normal Negative mg/dL Urine Leukocyte Esterase 3+ Negative /uL Urine RBC 3 0 - 4 /hpf Urine WBC 79 0 - 5 /hpf Urine Squamous Epithelial Cells Mod <5 /hpf Urine Bacteria Few H None Seen /hpf Urine Mucus Few None Seen Urine Yeast (Budding) Occasional None Seen /hpf Urine Glucose Normal Normal mg/dL White Blood Count 10.5 4.4-10.8 10^3/uL Red Blood Count 4.81 4.0-5.20 10^6/uL Hemoglobin 13.8 12.2-16.2 g/dL Hematocrit 41.2 36.0-46.0 % Mean Corpuscular Volume 85.8 80.0-100.0 fL Mean Corpuscular Hemoglobin 28.7 28.0-32.0 pg Mean Corpuscular Hemoglobin Concent 33.5 32.0-36.0 g/dL Red Cell Distribution Width 18.2 H 11.8-14.3 % Platelet Count 296 140-450 10^3/uL Mean Platelet Volume 9.5 6.9-10.8 fL Neutrophils (%) (Auto) 88.1 H 37.0-80.0 % Lymphocytes (%) (Auto) 7.6 L 10.0-50.0 % Monocytes (%) (Auto) 3.9 0.0-12.0 % Eosinophils (%) (Auto) 0.1 0.0-7.0 % Basophils (%) (Auto) 0.3 0.0-2.0 % Neutrophils # (Auto) 9.3 H 1.6-8.6 10 ^3/uL Lymphocytes # (Auto) 0.8 0.4-5.4 10 ^3/uL Monocytes # (Auto) 0.4 0-1.3 10 ^3/uL Eosinophils # (Auto) 0 0-0.8 10 ^3/uL Basophils # (Auto) 0 0-0.2 10 ^3/uL Nucleated Red Blood Cells 0.0 % Prothrombin Time 16.3 H 9.3-11.8 sec Prothrombin Time INR 1.59 H 0.9-1.15 Activated Partial Thromboplast Time 33.0 24.5-34.5 SEC Sodium Level 141 136-145 mmol/L Potassium Level 4.1 3.5-5.1 mmol/L Chloride Level 107 98-107 mmol/L Carbon Dioxide Level 25 20-31 mmol/L Anion Gap 9 5-15 Blood Urea Nitrogen 19 9-23 mg/dL Creatinine 1.19 H 0.550-1.02 mg/dL Glomerular Filtration Rate Calc 48 >90 mL/min BUN/Creatinine Ratio 16.0 10.0-20.0 Serum Glucose 154 H 74-106 mg/dL Calcium Level 9.9 8.7-10.4 mg/dL Magnesium Level 1.9 1.6-2.6 mg/dL Total Bilirubin 0.5 0.2-1.0 mg/dL Aspartate Amino Transferase (AST) 25 13-40 U/L Alanine Aminotransferase (ALT) 21 7-40 U/L Alkaline Phosphatase 128 H 46-116 U/L B-Type Natriuretic Peptide 300.32 0-100 pg/mL Total Protein 7.9 5.7-8.2 g/dL Albumin 3.9 3.2-4.8 g/dL Microbiology Date/Time Source Procedure Growth Status 08/17/24 04:52 Stool Stool Culture - Preliminary Resulted 08/17/24 04:52 Stool Shiga Toxin I & II - Final Resulted Assessment NSTEMI Coronary artery disease status post PTCA x1 STEFAN Rule out structural heart disease Hypertension Hyperlipidemia CVA with right-sided deficit Obstructive sleep apnea with CPAP use Bed ridden Morbid obesity Plan/Recommendation We will continue with following plan/recommendations (Dr. Rodriguez): * Echocardiogram to evaluate cardiac function * Aggressive BP control * Lipid-lowering agent * Cardiac surveillance: Notify of any ECG changes * Antibiotics per primary care team Case discussed with . Pending echocardiogram results. In the meantime, continue with medical management. Thank you for allowing us to care for this patient. Please call with any questions or concerns. Critical care time spent: 42 minutes This medical document was created using an electronic medical record system with voice recognition software and computerized dictation system. Although this document has been carefully reviewed, there might still be some phonetic and typographical errors. Occasional wrong-word or ``sound-alike substitutions may have occurred due to the inherent limitations of voice recognition software. These areas are purely typographical due to imperfections of the software programs and do not reflect any compromise in the patient's medical care. Please read the chart carefully and recognize, using context, where these substitutions have occurred. Plan discussed with: Patient NYHA Physical activity limitations: NA Date of Service: Aug 17, 2024 Billing Provider: SHERYL MEIER Cardiology Common Codes: [id number] INP/OBS CARE (High) Cardiology Consultation Codes: [id number] CONSULT <45MIN SHERYL MEIER Aug 17, 2024 13:11
[2024-08-17] MEDS: metroNIDAZOLE 500MG/100ML 100 ML IV SCH (14:17)
--- NOTE | 2024-08-17 16:33 | DVHSR ---
APPROVED REPORT EXAM: Two-dimensional and M-mode echocardiogram with Doppler and color Doppler. Blood Pressure: 134/30 mmHg INDICATION Chest Pain RISK FACTORS Obesity: Height: 5'7", Weight: 250 DIMENSIONS LVDd4.8 (3.8-5.7cm)LA (2D)4.4 (1.9-4.0cm)Aortic Root3.2 (2.0-3.7cm) LVDs4.0 (2.5-4.0cm)LA (MM) (1.9-4.0cm)Aortic Cusp Exc1.8 (1.5-2.0cm) EF (%) 35.0 (55-70%)Rt. Atrium3.9 (1.9-4.0cm)Asc. Aorta cm IVSd1.2 (0.7-1.1cm)RV (D) (1.8-2.4cm) PWd1.2 (0.7-1.1cm) Mitral Valve MitralMitral Stenosis E wave0.96m/sMV Mean GR.mmHg A wave0.45m/sMV Peak GR.mmHg E/A ratio2.12D MVAcm2 DECEL [id number] 1/2 [place] Aortic Valve Aortic ValveAortic Stenosis V10.87m/Porsche Mean GR.2mmHg V21.13m/Porsche Peak GR.5mmHg LVOT Diameter2.0 (1.8-2.4cm)Doppler AVA2.42cm2 AI P 1/2 Sgjk378.08ms Pulmonic Valve V20.94m/s Tricuspid Valve TR Velocity3.21m/s [id number] Other Information Technically limited study due to body habitus, patient lying flat. Conclusion lvef 40 % by visual estimate mild to moderaete LVH moderate LV dysfuntion global noraml RV function normal atria mild to moderate tricuspid regurg moderate pulm htn pericardial fat vs effusion noted adjanent to RV , not well visualized
--- NOTE | 2024-08-17 17:14 | DVH ---
CHEST RADIOGRAPH Indication: sob Technique: Single frontal view of the chest was obtained Comparison: None FINDINGS: Lines and Tubes: None Lungs: No focal consolidation. Pleura: No effusion.No pneumothorax. Cardiomediastinal contours: Moderate cardiomegaly. Pulmonary vasculature: There is prominence of the pulmonary vasculature. Bones: No acute osseous abnormality. IMPRESSION: 1. Moderate cardiomegaly with pulmonary vascular congestion. HS:Y
[2024-08-17] MEDS: KETOROLAC TROMETH 30 MG/ML 1ML VIAL IV ONE (20:00)
[2024-08-17 20:52] VITALS: PULSE 75; RESP 27; O2SAT 98
[2024-08-17 23:11] VITALS: O2SAT 96
[2024-08-17 23:15] VITALS: BP 119/52; PULSE 73; RESP 16; TEMP 98.3; O2SAT 100
[2024-08-18] VITALS (9 sets, daily range): BP systolic 114–156; BP diastolic 53–77; PULSE 61–69; RESP 16–22; TEMP 97.7–98.9; O2SAT 93–100
[2024-08-18 07:25] LABS: Basophils # (auto) 0.1 10 ^3/uL (0-0.2); Basophils % (auto) 0.6 % (0.0-2.0); Eosinophils # (auto) 0.1 10 ^3/uL (0-0.8); Eosinophils % (auto) 1.3 % (0.0-7.0); Hematocrit 37.4 % (36.0-46.0); Hemoglobin 12.2 g/dL (12.2-16.2); Lymphocytes % (auto) 21.7 % (10.0-50.0); Mean Corpuscular Hemoglobin 28.6 pg (28.0-32.0); Mean Corpuscular Hgb Conc. 32.7 g/dL (32.0-36.0); Mean Corpuscular Volume 87.4 fL (80.0-100.0); Monocytes # (auto) 0.9 10 ^3/uL (0-1.3); Monocytes % (auto) 10.3 % (0.0-12.0); Neutrophils # (auto) 5.9 10 ^3/uL (1.6-8.6); Neutrophils % (auto) 66.1 % (37.0-80.0); Platelet Count (auto) 208 10^3/uL (140-450); Red Blood Cells 4.28 10^6/uL (4.0-5.20); Red Cell Distribution Width 18.6 % (11.8-14.3)
[2024-08-18 07:56] LABS: Alanine Aminotransferase 14 U/L (7-40); Albumin 3.3 g/dL (3.2-4.8); Alkaline Phosphatase 100 U/L (46-116); Anion Gap 9 (5-15); Aspartate Aminotransferase 22 U/L (13-40); BUN/Creatinine Ratio 14.2 (10.0-20.0); Bilirubin, Total 0.3 mg/dL (0.2-1.0); Blood Urea Nitrogen 19 mg/dL (9-23); Calcium 9.1 mg/dL (8.7-10.4); Carbon Dioxide 22 mmol/L (20-31); Glucose 81 mg/dL (74-106); Potassium 3.7 mmol/L (3.5-5.1); Sodium 142 mmol/L (136-145); Total Protein 6.8 g/dL (5.7-8.2)
[2024-08-18 08:03] LABS: Chloride 111 mmol/L (98-107)
[2024-08-18] MEDS: PANTOPRAZOLE 40 MG/10 ML VIAL INJ IV SCH (08:16)
[2024-08-18] MEDS: cefTRIAXone 1GM/50ML D5W 50 ML IV SCH (08:16)
[2024-08-18] MEDS: ACETAMINOPHEN 325 MG TAB PO PRN (11:42)
--- NOTE | 2024-08-18 14:51 | DVHPN2 ---
Progress Note Date Seen: Aug 18, 2024 Medical Necessity Reason Pt with a Central, PICC or Fol: Yes The following are medically ne: Carranza Catheter Reason for carranza catheter: Strict I&O Subjective Patient reports: No new complaints Review of Systems: HEENT:Normal, CVS:Normal, RESPIRATORY:Normal, GI:Normal, :Normal, MSK:Normal, NEURO:Normal Objective vital signs Vital Sign Date Time Temp Pulse Resp B/P (MAP) Pulse Ox O2 Delivery O2 Flow Rate FiO2 08/18/24 12:39 98.2 66 17 115/63 (80) 98 98.2 08/18/24 08:00 Nasal Cannula* 3 32 Total Intake and Output 08/17/24 08/17/24 08/18/24 15:00 23:00 07:00 Intake Total 550 ml 200 ml 500 ml Output Total 200 ml 420 ml Balance 550 ml 0 ml 80 ml medications Current Medications Medications Dose Ordered Sig/Justin Route Start Time Stop Time Status Last Admin Dose Admin Aspirin 81 mg DAILY PO 08/17/24 10:00 08/18/24 08:16 81 MG Morphine Sulfate 2 mg Q30MP PRN IV 08/17/24 09:45 Acetaminophen 650 mg Q6HP PRN PO 08/17/24 09:45 08/18/24 11:42 650 MG Nitroglycerin 0.4 mg Q5MINP PRN SL 08/17/24 09:45 Ondansetron HCl 4 mg Q4HP PRN IV 08/17/24 09:45 Nitroglycerin 0.4 mg Q5MINP PRN SL 08/17/24 09:45 Morphine Sulfate 2 mg Q30M PRN IV 08/17/24 09:45 Enoxaparin Sodium 110 mg Q12HR SC 08/17/24 10:00 08/18/24 08:17 100 MG Albuterol 2.5 mg Q4HPRN PRN NEB 08/17/24 09:45 Ipratropium [place] 0.5 mg Q4HPRN PRN NEB 08/17/24 09:45 Metronidazole 100 ml @ 100 mls/hr Q8HR IV 08/17/24 14:00 08/18/24 13:07 100 MLS/HR Ceftriaxone Sodium 50 ml @ 100 mls/hr DAILY@09 IV 08/18/24 09:00 08/18/24 08:16 100 MLS/HR Pantoprazole Sodium 40 mg DAILY IV 08/18/24 10:00 08/18/24 08:16 40 MG Albuterol 2.5 mg Q4HPRN PRN NEB 08/17/24 10:15 Ipratropium [place] 0.5 mg Q4HPRN PRN NEB 08/17/24 10:15 Acetaminophen/ Hydrocodone Bitart 1 tab Q6HPRN PRN PO 08/18/24 14:45 UNV Morphine Sulfate 2 mg Q4HPRN PRN IV 08/18/24 14:45 UNV Atorvastatin Calcium 40 mg HS PO 08/18/24 22:00 UNV Examination: GENERAL:Normal, HEENT:Normal, NECK:Normal, LUNGS:Normal, LUNGS:Abnormal (on oxygen), CVS:Normal, ABDOMEN:Normal, MSK:Normal, SKIN:Normal, NEURO:Normal, NEURO:Abnormal (right hemiplegia, aphasia), :Normal laboratory and microbiology Laboratory Tests 08/18/24 06:55 Test 08/18/24 06:55 Range/Units Serum Glucose 81 74-106 mg/dL Microbiology Date/Time Source Procedure Growth Status 08/17/24 04:52 Stool Stool Culture - Preliminary Resulted 08/17/24 04:52 Stool Shiga Toxin I & II - Final Resulted Problem List/Assessment/Plan Problem List/Assessment/Plan #1 acute resp failure: cont oxygen #2 acute systolic/diastolic heart failure: lasix iv, echo #3 acute mi: cardio eval #4 cad s/p stent #5 obesity #6 cva with right hemiplegia/motor aphasia #7 uti: culture, iv rocephin #8 diarrhea: flagyl, rocephin #9 obesity #10 polo: cpap #11 htn #12 hyperlipidemia #13 ckd stage 3 advance care planning- full code- time spent 21 mins discussed with daughter Ana Plan discussed with: Patient, Daughter My Orders My Orders Orders - DALLIN BETANCOURT MD Procedure Category Date Status Time Hydrocodone-Acet PHA 08/18/24 Logged 5/325mg Tab ([place] 14:45 Morphine Sulfate PHA 08/18/24 Logged Injection 14:45 Atorvastatin (Lipitor) PHA 08/18/24 Logged 22:00 Urine Bacterial ANNIA 08/18/24 Logged Culture 14:38 Date of Service: Aug 18, 2024 Billing Provider: DALLIN BETANCOURT MD Common Visit Codes: [id number] INP/OBS CARE(HIGH) Secondary Visit Codes: [id number] CARE PLAN 30 MINUTES DALLIN BETANCOURT MD Aug 18, 2024 14:51
[2024-08-18] MEDS: FUROSEMIDE 20 MG/2 ML VIAL IV ONE (15:49)
[2024-08-18] MEDS: MORPHINE SULFATE INJ 2 MG/ml SYRG IV PRN ×2 (15:49)
--- NOTE | 2024-08-18 16:12 | DVHPN2 ---
Consult Progress Note Subjective Other Systems: Denies any cardiac symptoms Objective vital signs Vital Sign Date Time Temp Pulse Resp B/P (MAP) Pulse Ox O2 Delivery O2 Flow Rate FiO2 08/18/24 15:49 127/63 08/18/24 15:49 62 16 08/18/24 12:39 98.2 98 98.2 08/18/24 08:00 Nasal Cannula* 3 32 Total Intake and Output 08/17/24 08/17/24 08/18/24 15:00 23:00 07:00 Intake Total 550 ml 200 ml 500 ml Output Total 200 ml 420 ml Balance 550 ml 0 ml 80 ml medications Current Medications Medications Dose Ordered Sig/Justin Route Start Time Stop Time Status Last Admin Dose Admin Aspirin 81 mg DAILY PO 08/17/24 10:00 08/18/24 08:16 81 MG Acetaminophen 650 mg Q6HP PRN PO 08/17/24 09:45 08/18/24 11:42 650 MG Ondansetron HCl 4 mg Q4HP PRN IV 08/17/24 09:45 Nitroglycerin 0.4 mg Q5MINP PRN SL 08/17/24 09:45 Morphine Sulfate 2 mg Q30M PRN IV 08/17/24 09:45 08/18/24 15:49 2 MG Metronidazole 100 ml @ 100 mls/hr Q8HR IV 08/17/24 14:00 08/18/24 13:07 100 MLS/HR Ceftriaxone Sodium 50 ml @ 100 mls/hr DAILY@09 IV 08/18/24 09:00 08/18/24 08:16 100 MLS/HR Pantoprazole Sodium 40 mg DAILY IV 08/18/24 10:00 08/18/24 08:16 40 MG Albuterol 2.5 mg Q4HPRN PRN NEB 08/17/24 10:15 Ipratropium [place] 0.5 mg Q4HPRN PRN NEB 08/17/24 10:15 Acetaminophen/ Hydrocodone Bitart 1 tab Q6HPRN PRN PO 08/18/24 14:45 Morphine Sulfate 2 mg Q4HPRN PRN IV 08/18/24 14:45 Atorvastatin Calcium 40 mg HS PO 08/18/24 22:00 Furosemide 20 mg DAILY IV 08/19/24 10:00 Enoxaparin Sodium 40 mg DAILY SC 08/19/24 10:00 Examination: GENERAL:Abnormal, LUNGS:Normal, CVS:Normal laboratory and microbiology Laboratory Tests 08/18/24 06:55 Test 08/18/24 06:55 Range/Units Serum Glucose 81 74-106 mg/dL Problem List/Assessment/Plan Problem List/Assessment/Plan NSTEMI, likely type II Preprocedural cardiovascular examination Coronary artery disease status post PTCA x1 STEFAN Acute on chronic HFrEF, NYHA class III ?Coumadin therapy Hypertension Hyperlipidemia Gallstones CVA with right-sided deficit Obstructive sleep apnea with CPAP use Bed ridden Morbid obesity Plan/Recommendation (Dr. Bergman): * Echocardiogram reveals EF 40% * Initiate GDMT for CHF as tolerated * Avoid SGLT2i given current UTI * Add mineralocorticoid receptor agonist with improved creatinine * Aggressive BP control * Lipid-lowering agent * Cardiac surveillance: Notify of any ECG changes * Antibiotics per primary care team Patient seen and examined at bedside with . Elevated troponin level likely secondary to demand mismatch ischemia from underlying infection. Patient denies any cardiac symptoms such as chest pain, palpitations, or shortness of breath. Patient found to have gallstones. Pending further workup. Revised cardiac risk index (Jeffrey criteria): 2 points (10.1%). Chest x-ray reveals moderate cardiomegaly and pulmonary vascular congestion. We will recommend for diuresis prior to any procedure. Prior to admission, the patient has a poor functional capacity as she is bed ridden. Per Cardiology standpoint, the patient is at a high risk for moderate risk surgery. It is unknown why patient is taking Coumadin therapy at home. Recommend to continue home dose Coumadin therapy and follow up with primary electric meter reader in the outpatient setting in 1-2 weeks post discharge. There is no further inpatient cardiac workup indicated at this time. Thank you for allowing us to care for this patient. Please call with any questions or concerns. This medical document was created using an electronic medical record system with voice recognition software and computerized dictation system. Although this document has been carefully reviewed, there might still be some phonetic and typographical errors. Occasional wrong-word or ``sound-alike substitutions may have occurred due to the inherent limitations of voice recognition software. These areas are purely typographical due to imperfections of the software programs and do not reflect any compromise in the patient's medical care. Please read the chart carefully and recognize, using context, where these substitutions have occurred. Plan discussed with: Patient Date of Service: Aug 18, 2024 Billing Provider: FOX BERGMAN MD Common Visit Codes: [id number] INP/OBS CARE(HIGH) SHERYL MEIER NEEDLE FELT MAKING MACHINE OPERATOR Aug 18, 2024 16:12
[2024-08-18] MEDS: ATORVASTATIN 20 MG TAB PO SCH (21:26)
[2024-08-19] VITALS (11 sets, daily range): BP systolic 119–142; BP diastolic 54–72; PULSE 57–74; RESP 16–19; TEMP 97.1–98.6; O2SAT 96–100
--- NOTE | 2024-08-19 07:01 | DVH ---
CHEST RADIOGRAPH Indication: CHF Technique: Single frontal view of the chest was obtained Comparison: XY CHEST XRAY 1 VIEW on DOS: 08/17/24 FINDINGS: Lines and Tubes: None Lungs: Pulmonary vascular congestion. Pleura: No effusion. No pneumothorax. Cardiomediastinal contours: Stable cardiomegaly. Bones: No acute osseous abnormality. IMPRESSION: 1. Stable pulmonary vascular congestion.
[2024-08-19 07:41] LABS: Anion Gap 7 (5-15); Calcium 9.4 mg/dL (8.7-10.4); Carbon Dioxide 24 mmol/L (20-31); Potassium 4.3 mmol/L (3.5-5.1); Sodium 140 mmol/L (136-145)
[2024-08-19 07:47] LABS: BUN/Creatinine Ratio 13.1 (10.0-20.0); Blood Urea Nitrogen 16 mg/dL (9-23); Glucose 77 mg/dL (74-106)
[2024-08-19 07:49] LABS: Chloride 109 mmol/L (98-107)
[2024-08-19 07:50] LABS: Basophils # (auto) 0 10 ^3/uL (0-0.2); Basophils % (auto) 0.7 % (0.0-2.0); Eosinophils # (auto) 0.1 10 ^3/uL (0-0.8); Hematocrit 38.2 % (36.0-46.0); Hemoglobin 12.4 g/dL (12.2-16.2); Lymphocytes # (auto) 2.2 10 ^3/uL (0.4-5.4); Lymphocytes % (auto) 30.8 % (10.0-50.0); Mean Corpuscular Hemoglobin 28.2 pg (28.0-32.0); Mean Corpuscular Hgb Conc. 32.5 g/dL (32.0-36.0); Mean Corpuscular Volume 86.8 fL (80.0-100.0); Monocytes # (auto) 0.8 10 ^3/uL (0-1.3); Monocytes % (auto) 10.7 % (0.0-12.0); Neutrophils # (auto) 3.9 10 ^3/uL (1.6-8.6); Neutrophils % (auto) 55.8 % (37.0-80.0); Platelet Count (auto) 215 10^3/uL (140-450); Red Cell Distribution Width 18.3 % (11.8-14.3)
[2024-08-19] MEDS: FUROSEMIDE 20 MG/2 ML VIAL IV SCH (09:02)
[2024-08-19] MEDS: ENOXAPARIN SOD 40 MG/0.4 ML SYRINGE SC SCH (09:02)
[2024-08-19] MEDS: LOSARTAN POTASSIUM 25 MG TAB PO SCH (09:03)
[2024-08-19] MEDS: METOPROLOL SUCCINATE XL 50 MG TAB PO SCH (09:03)
--- NOTE | 2024-08-19 11:32 | DVHPN2 ---
Progress Note Date Seen: Aug 19, 2024 Medical Necessity Reason Pt with a Central, PICC or Fol: Yes The following are medically ne: Carranza Catheter Reason for carranza catheter: Strict I&O Subjective Patient reports: No new complaints Review of Systems: HEENT:Normal, CVS:Normal, RESPIRATORY:Normal, GI:Normal, :Normal, MSK:Normal, NEURO:Normal Objective vital signs Vital Sign Date Time Temp Pulse Resp B/P (MAP) Pulse Ox O2 Delivery O2 Flow Rate FiO2 08/19/24 09:03 141/63 08/19/24 09:03 74 08/19/24 08:48 98.6 18 100 98.6 08/19/24 07:30 Nasal Cannula 2.0 08/19/24 07:30 28 Total Intake and Output 08/18/24 08/18/24 08/19/24 14:59 22:59 06:59 Intake Total 150 ml 300 ml 450 ml Output Total 250 ml 1050 ml Balance 150 ml 50 ml -600 ml medications Current Medications Medications Dose Ordered Sig/Justin Route Start Time Stop Time Status Last Admin Dose Admin Aspirin 81 mg DAILY PO 08/17/24 10:00 08/19/24 09:03 81 MG Acetaminophen 650 mg Q6HP PRN PO 08/17/24 09:45 08/18/24 11:42 650 MG Ondansetron HCl 4 mg Q4HP PRN IV 08/17/24 09:45 Nitroglycerin 0.4 mg Q5MINP PRN SL 08/17/24 09:45 Morphine Sulfate 2 mg Q30M PRN IV 08/17/24 09:45 Metronidazole 100 ml @ 100 mls/hr Q8HR IV 08/17/24 14:00 08/19/24 05:03 100 MLS/HR Ceftriaxone Sodium 50 ml @ 100 mls/hr DAILY@09 IV 08/18/24 09:00 08/19/24 09:01 100 MLS/HR Pantoprazole Sodium 40 mg DAILY IV 08/18/24 10:00 08/19/24 09:01 40 MG Albuterol 2.5 mg Q4HPRN PRN NEB 08/17/24 10:15 Ipratropium Grady 0.5 mg Q4HPRN PRN NEB 08/17/24 10:15 Acetaminophen/ Hydrocodone Bitart 1 tab Q6HPRN PRN PO 08/18/24 14:45 Morphine Sulfate 2 mg Q4HPRN PRN IV 08/18/24 14:45 08/18/24 21:27 2 MG Atorvastatin Calcium 40 mg HS PO 08/18/24 22:00 08/18/24 21:26 40 MG Furosemide 20 mg DAILY IV 08/19/24 10:00 08/19/24 09:02 20 MG Enoxaparin Sodium 40 mg DAILY SC 08/19/24 10:00 08/19/24 09:02 40 MG Metoprolol Succinate 25 mg DAILY PO 08/19/24 10:00 08/19/24 09:03 25 MG Losartan Potassium 12.5 mg DAILY PO 08/19/24 10:00 08/19/24 09:03 12.5 MG Examination: GENERAL:Normal, HEENT:Normal, NECK:Normal, LUNGS:Normal, CVS:Normal, ABDOMEN:Normal, MSK:Normal, SKIN:Normal, NEURO:Normal, :Normal laboratory and microbiology Laboratory Tests 08/19/24 06:54 Test 08/19/24 06:54 Range/Units Serum Glucose 77 74-106 mg/dL Microbiology Date/Time Source Procedure Growth Status 08/17/24 04:52 Stool Stool Culture - Preliminary Resulted 08/17/24 04:52 Stool Shiga Toxin I & II - Final Resulted Problem List/Assessment/Plan Problem List/Assessment/Plan #1 acute resp failure: cont oxygen #2 acute systolic/diastolic heart failure: lasix iv, echo #3 acute mi: cardio eval #4 cad s/p stent #5 obesity #6 cva with right hemiplegia/motor aphasia #7 uti: culture, iv rocephin #8 diarrhea: flagyl, rocephin #9 obesity #10 polo: cpap #11 htn #12 hyperlipidemia #13 ckd stage 3 advance care planning- full code- time spent 21 mins discussed with daughter Ana Plan discussed with: Patient My Orders My Orders Orders - DALLIN BETANCOURT MD Procedure Category Date Status Time Hydrocodone-Acet PHA 08/18/24 In Process 5/325mg Tab (King 14:45 Morphine Sulfate PHA 08/18/24 In Process Injection 14:45 Atorvastatin (Lipitor) PHA 08/18/24 In Process 22:00 Urine Bacterial ANNIA 08/18/24 In Process Culture 14:38 Furosemide Injection PHA 08/19/24 In Process (Lasix Injection) 10:00 Chest Portable XY 08/19/24 Resulted 06:00 Bipap/Cpap For Sleep RT 08/18/24 Logged Apnea 14:48 Enoxaparin Sodium PHA 08/19/24 In Process (Lovenox) 10:00 Date of Service: Aug 19, 2024 Billing Provider: DALLIN BETANCOURT MD Common Visit Codes: [id number] INP/OBS CARE(HIGH) DALLIN BETANCOUTR MD Aug 19, 2024 11:32
[2024-08-19] MEDS: metroNIDAZOLE 500 MG TAB PO SCH (13:58)
[2024-08-19] MEDS: WARFARIN SODIUM 1 MG TAB PO ONE (17:14)
[2024-08-20] VITALS (9 sets, daily range): BP systolic 121–154; BP diastolic 6–76; PULSE 57–127; RESP 16–20; TEMP 97.8–98.3; O2SAT 95–99
[2024-08-20] MEDS: PANTOPRAZOLE 40 MG TAB PO SCH (05:05)
[2024-08-20 08:06] LABS: INR 1.7 (0.9-1.15); Partial Thromboplastin Time 35.2 SEC (24.5-34.5); Prothrombin Time 17.3 sec (9.3-11.8)
[2024-08-20 08:18] LABS: Basophils # (auto) 0 10 ^3/uL (0-0.2); Basophils % (auto) 0.4 % (0.0-2.0); Eosinophils # (auto) 0.2 10 ^3/uL (0-0.8); Eosinophils % (auto) 3.4 % (0.0-7.0); Hematocrit 35.8 % (36.0-46.0); Hemoglobin 11.7 g/dL (12.2-16.2); Lymphocytes # (auto) 0.8 10 ^3/uL (0.4-5.4); Lymphocytes % (auto) 14.5 % (10.0-50.0); Mean Corpuscular Hemoglobin 28.3 pg (28.0-32.0); Mean Corpuscular Hgb Conc. 32.8 g/dL (32.0-36.0); Mean Corpuscular Volume 86.2 fL (80.0-100.0); Monocytes # (auto) 0.6 10 ^3/uL (0-1.3); Neutrophils # (auto) 4.2 10 ^3/uL (1.6-8.6); Neutrophils % (auto) 71.7 % (37.0-80.0); Nucleated Red Blood Cells % 0.1 %; Platelet Count (auto) 204 10^3/uL (140-450); Red Blood Cells 4.15 10^6/uL (4.0-5.20); White Blood Cell 5.8 10^3/uL (4.4-10.8)
[2024-08-20] MEDS ORDERED: FLUC100T PO (11:07)
[2024-08-20] MEDS ORDERED: METR-344 PO (11:07)
--- NOTE | 2024-08-20 11:15 | DVHDS2 ---
Discharge Summary Date of Admission Aug 17, 2024 at 09:38 Date of Discharge: Aug 20, 2024 Admitting Diagnosis Abdominal pain Labs/Diagnostic Data: Laboratory Results Test 08/20/24 07:11 08/19/24 06:54 08/18/24 06:55 08/17/24 11:37 White Blood Count 5.8 10^3/uL (4.4-10.8) Red Blood Count 4.15 10^6/uL (4.0-5.20) Hemoglobin 11.7 g/dL (12.2-16.2) Hematocrit 35.8 % (36.0-46.0) Mean Corpuscular Volume 86.2 fL (80.0-100.0) Mean Corpuscular Hemoglobin 28.3 pg (28.0-32.0) Mean Corpuscular Hemoglobin Concent 32.8 g/dL (32.0-36.0) Red Cell Distribution Width 18.0 % (11.8-14.3) Platelet Count 204 10^3/uL (140-450) Mean Platelet Volume 9.3 fL (6.9-10.8) Neutrophils (%) (Auto) 71.7 % (37.0-80.0) Lymphocytes (%) (Auto) 14.5 % (10.0-50.0) Monocytes (%) (Auto) 10.0 % (0.0-12.0) Eosinophils (%) (Auto) 3.4 % (0.0-7.0) Basophils (%) (Auto) 0.4 % (0.0-2.0) Neutrophils # (Auto) 4.2 10 ^3/uL (1.6-8.6) Lymphocytes # (Auto) 0.8 10 ^3/uL (0.4-5.4) Monocytes # (Auto) 0.6 10 ^3/uL (0-1.3) Eosinophils # (Auto) 0.2 10 ^3/uL (0-0.8) Basophils # (Auto) 0 10 ^3/uL (0-0.2) Nucleated Red Blood Cells 0.1 % Prothrombin Time 17.3 sec (9.3-11.8) Prothrombin Time INR 1.70 (0.9-1.15) Activated Partial Thromboplast Time 35.2 SEC (24.5-34.5) Sodium Level 140 mmol/L (136-145) Potassium Level 4.3 mmol/L (3.5-5.1) Chloride Level 109 mmol/L (98-107) Carbon Dioxide Level 24 mmol/L (20-31) Anion Gap 7 (5-15) Blood Urea Nitrogen 16 mg/dL (9-23) Creatinine 1.22 mg/dL (0.550-1.02) Glomerular Filtration Rate Calc 47 mL/min (>90) BUN/Creatinine Ratio 13.1 (10.0-20.0) Serum Glucose 77 mg/dL (74-106) Calcium Level 9.4 mg/dL (8.7-10.4) Total Bilirubin 0.3 mg/dL (0.2-1.0) Aspartate Amino Transferase (AST) 22 U/L (13-40) Alanine Aminotransferase (ALT) 14 U/L (7-40) Alkaline Phosphatase 100 U/L (46-116) Total Protein 6.8 g/dL (5.7-8.2) Albumin 3.3 g/dL (3.2-4.8) Troponin I High Sensitivity 477 ng/L (</=34) Test 08/17/24 11:30 08/17/24 06:15 Urine Color Yellow (Yellow) Urine Clarity Turbid (Clear) Urine pH 5.0 (5.0-9.0) Urine Specific [place] 1.020 (1.001-1.035) Urine Protein 1+ (Negative) Urine Ketones Negative (Negative) Urine Blood Negative /uL (Negative) Urine Nitrite Negative (Negative) Urine Bilirubin Negative (Negative) Urine Urobilinogen Normal mg/dL (Negative) Urine Leukocyte Esterase 3+ /uL (Negative) Urine RBC 3 /hpf (0 - 4) Urine WBC 79 /hpf (0 - 5) Urine Squamous Epithelial Cells Mod /hpf (<5) Urine Bacteria Few /hpf (None Seen) Urine Mucus Few (None Seen) Urine Yeast (Budding) Occasional /hpf (None Urine Glucose Normal mg/dL (Normal) Magnesium Level 1.9 mg/dL (1.6-2.6) B-Type Natriuretic Peptide 300.32 pg/mL (0-100) Other Laboratory Tests 08/20/24 07:11 08/19/24 06:54 Brief Hx & Hospital Course: History of Present Illness Chavira, Twila is a 74-year-old female with past medical history of hypertension, hyperlipidemia, bronchitis, CVA with right-sided deficits over 8 years ago who is bed ridden, cardiac stent over 10 years ago, and hysterectomy who presents to the ED for nausea, vomiting, diarrhea, abdominal pain, and shortness of breath times 1 day. Per daughter who is at bedside she states that the diarrhea just happened yesterday and she reports that she believes it is due to spoiled food. Patient daughter also reports that patient is bed ridden due to a CVA that occurred over 8 years ago and the patient has right-sided deficits. Patient can still move her extremities but limited. Right lower extremity appears to be larger than the left side but patient has no complaints of pain. Patient also denies chest pain, fever, chills, any recent trauma or injury, recent sick contacts, lightheadedness, dizziness, and headaches. Course of hospitalization: Patient was started on Rocephin and Flagyl. Patient had rectal tube placed. Patient was found to have improvement with diarrhea. Patient also denies having any more abdominal pain. Stools negative for C diff, Campylobacter. Patient was white blood cell count has been normal. Vital signs stable. Patient will have her Olivera catheter and rectal tube discontinued. Urine culture positive for greater than [id number] yeast. Patient will be discharged home on Diflucan as well as Flagyl for five days. Patient will also continue all home medications as instructed to call the PCP in 1-2 weeks. Physical examination General: Alert and Oriented x3. No acute distress. Well-nourished. Obese Eyes: EOMI. Anicteric. HENT: Moist mucous membranes. Lungs: Clear to auscultation bilaterally. No accessory muscle use. Cardiovascular: Regular rate and rhythm. No murmur. No JVD. Abdomen: Soft, non-tender and non-distended. No palpable masses. Extremities: No edema. Non-tender. Skin: No rashes or lesions. Warm. Neurologic: No focal neurological deficits. CN II-XII grossly intact, but not individually tested. Right hemiplegia Psychiatric: Cooperative. Appropriate mood and affect. Total time spent with patient discussing and formulating plan of care: 35 minutes. This medical document was created using an electronic medical record system with [employer] dictation system. Although this document has been carefully reviewed, there may still be some phonetic and typographical errors. These areas are purely typographical due to imperfections of the software programs, and do not reflect any compromise in the patient's medical care. Consults/Reason for consult Cardiology: NSTEMI Condition at Discharge: Fair Final Diagnosis/Problems List Abdominal pain with diarrhea Secondary Diagnosis: #1 acute resp failure: cont oxygen #2 acute systolic/diastolic heart failure #3 NSTEMI type 2 #4 cad s/p stent #5 obesity #6 cva with right hemiplegia/motor aphasia #7 uti: culture, iv rocephin #8 diarrhea #9 obesity #10 polo #11 htn #12 hyperlipidemia #13 ckd stage 3 Discharge Disposition: Home Discharge Instruct/Medications Diet: Cardiac 2g Na,low cholest Activity: No Restrictions, As Tolerated Follow Up/Referral: PCP at [facility]. Recommend to have their Coumadin clinic alter home Coumadin to obtain appropriate INR Medications: Flagyl 500 mg p.o. 3 times a day x5 days Diflucan 100 mg p.o. daily x5 days 36 Discharge Statement: "Patient was advised to return to the ER or call 911 if any headaches, dizziness, shortness of breath, chest pain, abdominal pain, bleeding, fevers, or worsening of medical condition. Patient was counseled about treatment plan, medications, possible side effects, patientverbalized understanding. All questions were answered to the best of my ability. This discharge took greater then 30 minutes in planning, reviewing documentation, counseling the patient, and discussing with other team members." ASSESSMENT ASSESSMENT Assessment Abdominal pain with diarrhea Date of Service: Aug 20, 2024 Billing Provider: JOSE WORTHY NP Common Visit Codes: [id number] INP/OBS CARE(HIGH) JOSE WORTHY NP Aug 20, 2024 11:15
[2024-08-20] MEDS: METOPROLOL TARTRATE 1MG/1ML-5ML VIAL IV ONE ×2 (13:05→15:43)
--- NOTE | 2024-08-20 13:17 | ECG ---
[facility] Test Date: 2024-08-20 Test Time: 12:24:39 Pat Name: RADHA BONILLA Department: Respiratoy Room: 0250T B Gender: F Manager [place]: [place] : 1950 Requested By: JOSE WORTHY Order Number: [id number] Reading MD: Jb Ochoa Measurements Intervals [place] Rate: 93 P: 0 NV: 0 QRS: 0 QRSD: 106 T: 165 QT: 335 QTc: 417 Interpretive Statements Atrial fibrillation Ventricular premature complex LVH with secondary repolarization abnormality Electronically Signed On 08-23-2024 8:36:50 PST by Jb Ochoa Please click the below link to view image of tracing.
[2024-08-20] MEDS: WARFARIN SODIUM 1 MG TAB PO ONE (17:23)
[2024-08-20] MEDS: METOPROLOL SUCCINATE XL 50 MG TAB PO ONE (17:24)
[2024-08-21] VITALS (8 sets, daily range): BP systolic 116–138; BP diastolic 56–88; PULSE 65–103; RESP 18–19; TEMP 97.9–99.8; O2SAT 94–100
[2024-08-21] MEDS: HYDROcodone-ACET 5/325MG TAB PO PRN (06:35)
[2024-08-21 11:45] LABS: Basophils # (auto) 0 10 ^3/uL (0-0.2); Basophils % (auto) 0.7 % (0.0-2.0); Eosinophils # (auto) 0.2 10 ^3/uL (0-0.8); Eosinophils % (auto) 2.4 % (0.0-7.0); Hematocrit 37.4 % (36.0-46.0); Hemoglobin 12.4 g/dL (12.2-16.2); Lymphocytes # (auto) 1.9 10 ^3/uL (0.4-5.4); Lymphocytes % (auto) 29.4 % (10.0-50.0); Mean Corpuscular Hemoglobin 28.1 pg (28.0-32.0); Mean Corpuscular Hgb Conc. 33.2 g/dL (32.0-36.0); Mean Corpuscular Volume 84.8 fL (80.0-100.0); Monocytes # (auto) 0.7 10 ^3/uL (0-1.3); Monocytes % (auto) 10.9 % (0.0-12.0); Neutrophils # (auto) 3.6 10 ^3/uL (1.6-8.6); Neutrophils % (auto) 56.6 % (37.0-80.0); Nucleated Red Blood Cells % 0.3 %; Platelet Count (auto) 266 10^3/uL (140-450); Red Blood Cells 4.42 10^6/uL (4.0-5.20); Red Cell Distribution Width 18.1 % (11.8-14.3); White Blood Cell 6.4 10^3/uL (4.4-10.8)
[2024-08-21 11:59] LABS: INR 1.78 (0.9-1.15); Partial Thromboplastin Time 32.4 SEC (24.5-34.5); Prothrombin Time 18.1 sec (9.3-11.8)
--- NOTE | 2024-08-21 14:17 | DVHPN2 ---
Subjective Patient denies any symptoms. Reviewed: Care Plan, H&P, Labs, Medications Changes from previous H/P or p: No Changes General: Per HPI Eyes: No Pain, No Vision change, No Conjunctivae inflammation, No Eyelid inflammation, No Other, No Redness ENT: No Ear pain, No Ear discharge, No Nose pain, No Nose discharge, No Nose congestion, No Mouth pain, No Mouth swelling, No Throat pain, No Throat swelling, No Other Cardiovascular: No Chest Pain, No Palpitations, No Orthopnea, No Paroxysmal Noc. Dyspnea, No Edema, No Lt Headedness, No Other Respiratory: No Cough, No Dry; Shortness of breath; No SOB with excertion, No Wheezing, No Hemoptysis, No Pleuritic Pain, No Sputum, No Other Gastrointestinal: Nausea, Vomiting, Abdominal Pain, Diarrhea; No Constipation, No Melena, No Hematochezia, No Other Genitourinary: No Dysuria, No Frequency, No Incontinence, No Hematuria, No Retention, No Other Musculoskeletal: No other, No neck pain, No shoulder pain, No arm pain, No back pain, No hand pain, No leg pain, No foot pain Skin: No Rash, No Lesions, No Jaundice, No Bruising, No Other Objective Vitals Vital Signs Date Time Temp Pulse Resp B/P (MAP) Pulse Ox O2 Delivery O2 Flow Rate FiO2 08/21/24 13:12 98.5 65 18 97 08/21/24 09:32 118/79 08/21/24 08:00 Nasal Cannula* 3 32 Intake/Output Intake and Output 08/21/24 07:00 Intake Total 1611 ml Output Total 675 ml Balance 936 ml Intake Oral 1611 ml Output Urine Total 675 ml # Bowel Movements 1 General Appearance: Alert, Oriented X3, Cooperative, No acute distress HEENT: Atraumatic, PERRLA Cardiovascular: Normal S1, Normal S2 Abdomen: Normal bowel sounds, Soft, No tenderness Genitourinary: No Apparent Abnormalities (Catheter) Musculoskeletal: Normal sensory function Extremities: Other (Right hemiparesis) Psych/Mental Status: Mental status NL, Mood NL Medications Current Medications Medications Dose Ordered Sig/Justin Route Start Time Stop Time Status Last Admin Dose Admin Aspirin 81 mg DAILY PO 08/17/24 10:00 08/21/24 09:31 81 MG Acetaminophen 650 mg Q6HP PRN PO 08/17/24 09:45 08/18/24 11:42 650 MG Ondansetron HCl 4 mg Q4HP PRN IV 08/17/24 09:45 Nitroglycerin 0.4 mg Q5MINP PRN SL 08/17/24 09:45 Morphine Sulfate 2 mg Q30M PRN IV 08/17/24 09:45 Albuterol 2.5 mg Q4HPRN PRN NEB 08/17/24 10:15 Ipratropium Switzer 0.5 mg Q4HPRN PRN NEB 08/17/24 10:15 Acetaminophen/ Hydrocodone Bitart 1 tab Q6HPRN PRN PO 08/18/24 14:45 08/21/24 06:35 1 TAB Morphine Sulfate 2 mg Q4HPRN PRN IV 08/18/24 14:45 08/18/24 21:27 2 MG Atorvastatin Calcium 40 mg HS PO 08/18/24 22:00 08/20/24 20:59 40 MG Furosemide 20 mg DAILY IV 08/19/24 10:00 08/21/24 09:32 20 MG Metoprolol Succinate 25 mg DAILY PO 08/19/24 10:00 08/21/24 09:32 25 MG Losartan Potassium 12.5 mg DAILY PO 08/19/24 10:00 08/21/24 09:31 12.5 MG Pantoprazole Sodium 40 mg DAILY@0600 PO 08/20/24 06:00 08/21/24 05:14 40 MG Metronidazole 500 mg Q8HR PO 08/19/24 14:00 08/21/24 05:14 500 MG Warfarin Sodium RX PROTOCOL PER PHARMACY PO 08/19/24 11:30 Laboratory Results Laboratory Tests 08/19/24 06:54 08/21/24 10:49 Coagulation Test 08/21/24 10:49 Prothrombin Time 18.1 sec (9.3-11.8) H Prothrombin Time INR 1.78 (0.9-1.15) H Activated Partial Thromboplast Time 32.4 SEC (24.5-34.5) Urinalysis Test 08/17/24 11:30 Urine Color Yellow (Yellow) Urine Clarity Turbid (Clear) H Urine pH 5.0 (5.0-9.0) Urine Specific [place] 1.020 (1.001-1.035) Urine Protein 1+ (Negative) H Urine Ketones Negative (Negative) Urine Blood Negative /uL (Negative) Urine Nitrite Negative (Negative) Urine Bilirubin Negative (Negative) Urine Urobilinogen Normal mg/dL (Negative) Urine Leukocyte Esterase 3+ /uL (Negative) Urine RBC 3 /hpf (0 - 4) Urine WBC 79 /hpf (0 - 5) Urine Squamous Epithelial Cells Mod /hpf (<5) Urine Bacteria Few /hpf (None Seen) H Urine Mucus Few (None Seen) Urine Yeast (Budding) Occasional /hpf (None Urine Glucose Normal mg/dL (Normal) Microbiology Microbiology Date/Time Source Procedure Growth Status 08/19/24 04:00 Urine - [place] Urine Culture - Preliminary Yeast, not Erin albicans Resulted 08/17/24 04:52 Stool Stool Culture - Final Complete 08/17/24 04:52 Stool Shiga Toxin I & II - Final Complete Labs and/or images reviewed: Labs reviewed by me, Image(s) reviewed by me Assessment/Plan Assessment/Plan Impression: Abdominal pain with diarrhea Secondary Diagnosis: #1 acute resp failure: cont oxygen #2 acute systolic/diastolic heart failure #3 NSTEMI type 2 #4 cad s/p stent #5 obesity #6 cva with right hemiplegia/motor aphasia #7 uti: culture, iv rocephin #8 diarrhea #9 obesity #10 polo #11 htn #12 hyperlipidemia #13 ckd stage 3 -paroxysmal atrial fibrillation Plan: -patient was discharged yesterday, which was held secondary to patient converting to AFib with RVR. Patient was treated with IV metoprolol on several occasions as well as p.o. Toprol-XL. Patient was now in a flutter with a heart rate controlled in the 90s. Patient has history of AFib, for which she was on Coumadin. Patient will be discharged home with prescription provided yesterday for UTI. Total time spent with patient discussing and formulating plan of care: 35 minutes. This medical document was created using an electronic medical record system with [employer] dictation system. Although this document has been carefully reviewed, there may still be some phonetic and typographical errors. These areas are purely typographical due to imperfections of the software programs, and do not reflect any compromise in the patient's medical care. Plan discussed with: Patient, Other (RN) My Orders Orders - JOSE WORTHY [employer] WATCH[employer] Procedure Category Date Status Time Discharge DISCHARGE 08/21/24 Transmitted 14:08 Date of Service: Aug 21, 2024 Billing Provider: JOSE WORTHY NP Common Visit Codes: [id number] INP/OBS CARE(HIGH) JOSE WORTHY NP Aug 21, 2024 14:17
[2024-08-21] MEDS: WARFARIN SODIUM 1 MG TAB PO ONE (16:58)
== END 2024-08-21 21:15 | disposition home or self-care (01) | DRG 371 ==
LOC: EDBD 03:39 → ER 03:39 → TELE 09:38 → TELE-EAST 23:08
PROVIDERS: ADMIT Nurse Practitioner Acute Care; ATTEND Nurse Practitioner Acute Care
PROC: 5A09357 Assistance with Respiratory Ventilation, Less than 24 Consecutive Hours, Continuous Positive Airway Pressure (ICD-10-PCS; principal; 2024-08-18)
DX: A04.9 Bacterial intestinal infection, unspecified (principal); I21.A1 Myocardial infarction type 2; J96.00 Acute respiratory failure, unspecified whether with hypoxia or hypercapnia; I50.41 Acute combined systolic (congestive) and diastolic (congestive) heart failure; I13.0 Hypertensive heart and chronic kidney disease with heart failure and stage 1 through stage 4 chronic kidney disease, or unspecified chronic kidney disease; N39.0 Urinary tract infection, site not specified; I69.351 Hemiplegia and hemiparesis following cerebral infarction affecting right dominant side; K80.20 Calculus of gallbladder without cholecystitis without obstruction; E66.01 Morbid (severe) obesity due to excess calories; E78.5 Hyperlipidemia, unspecified; G47.33 Obstructive sleep apnea (adult) (pediatric); I25.10 Atherosclerotic heart disease of native coronary artery without angina pectoris; N20.0 Calculus of kidney; J42 Unspecified chronic bronchitis; N18.30 Chronic kidney disease, stage 3 unspecified; I48.0 Paroxysmal atrial fibrillation; Z88.0 Allergy status to penicillin; Z79.01 Long term (current) use of anticoagulants; Z90.710 Acquired absence of both cervix and uterus; Z95.5 Presence of coronary angioplasty implant and graft; Z74.01 Bed confinement status; Z68.39 Body mass index [BMI] 39.0-39.9, adult
CPT/HCPCS: 36415; 70450; 71045; 74176; 80048; 80053; 81001; 83735; 83880; 84484; 85025; 85610; 85730; 87045; 87086; 87088; 87427; 93005; 93306; 93971; 94660; 96365; 96372; 99291; G0378; J1885; J2405; J2470; J3490